=== PATIENT | female | born 1960 | race Caucasian/White ===

== ENCOUNTER 2018-07-24 13:14 | Emergency (ER) | payer BC ==
[2018-07-24 13:22] VITALS: TEMP 98.1
[2018-07-24] MEDS ORDERED: SODIUM CHLORIDE 0.9% 500 ML 500 ML IV STA (13:38)
--- NOTE | 2018-07-24 13:41 | ED ---
General Adult HPI - General Chief complaint: Syncope Stated complaint: SYNCOPE Time Seen by Provider: 07/24/18 13:19 Source: patient, EMS, RN notes reviewed, old records reviewed Mode of arrival: EMS Limitations: no limitations - History of Present Illness Initial comments: 58-year-old female presents status post syncopal episode. Patient states that f or the past 5 days she's been more constipated than usual. She was going to the bathroom today she was straining to have a bowel movement. She began feeling lightheaded and dizzy. Her came to assist, stated the patient up. She then had 4 syncopal episode with loss of consciousness. Only injury was to the left foot. Denied any preceding chest pain or palpitations. She does have previous history of coronary artery disease status post stenting. Denies current chest pain. Denies any pain other than the left ankle. She feels otherwise fine at the time my evaluation. - Related Data Home Medications Medication Instructions Recorded Confirmed Aspirin EC [Ecotrin Low Dose] 81 mg PO DAILY 07/24/18 07/24/18 Atorvastatin [Lipitor] 40 mg PO DAILY 07/24/18 07/24/18 DULoxetine HCL [Cymbalta] 30 mg PO DAILY 07/24/18 07/24/18 Diltiazem HCl [Cartia Xt] 120 mg PO DAILY 07/24/18 07/24/18 Gabapentin [Neurontin] 100 mg PO BID@0700,1300 07/24/18 07/24/18 Gabapentin [Neurontin] 300 mg PO HS 07/24/18 07/24/18 Isosorbide Mononitrate ER [Imdur] 30 mg PO TID 07/24/18 07/24/18 Metoprolol Tartrate [Lopressor] 12.5 mg PO BID 07/24/18 07/24/18 Allergies Allergy/AdvReac Type Severity Reaction Status Date / Time clindamycin Allergy Anaphylaxis Verified 07/24/18 13:34 Sulfa (Sulfonamide Allergy Rash/Hives Verified 07/24/18 13:34 Antibiotics) Review of Systems ROS Statement: Those systems with pertinent positive or pertinent negative responses have been documented in the HPI. ROS Other: All systems not noted in ROS Statement are negative. Past Medical History Past Medical History: Cancer, Deep Vein Thrombosis (DVT), Hyperlipidemia, Hypertension, Myocardial Infarction (PR), Pulmonary Embolus (PE), Rheumatoid Arthritis (RA) Additional Past Medical History / Comment(s): bladder cancer, PR 2013, neuropathy History of Any Multi-Drug Resistant Organisms: None Reported Past Surgical History: Section, Hysterectomy Additional Past Surgical History / Comment(s): urostomy Past Psychological History: No Psychological Hx Reported Smoking Status: Never smoker Past Alcohol Use History: None Reported Past Drug Use History: None Reported General Exam Limitations: no limitations General appearance: alert, in no apparent distress Head exam: Present: atraumatic, normocephalic Eye exam: Present: normal appearance, PERRL ENT exam: Present: normal exam Neck exam: Present: normal inspection. Absent: tenderness, meningismus Respiratory exam: Present: normal lung sounds bilaterally. Absent: respiratory distress, wheezes Cardiovascular Exam: Present: regular rate, normal rhythm GI/Abdominal exam: Present: soft. Absent: distended, tenderness, guarding Extremities exam: Present: full ROM, joint swelling (Left ankle soft tissue swelling anterior to the lateral malleolus. No bony deformity. Distal pulses intact.). Absent: pedal edema Neurological exam: Present: alert, oriented X3, CN II-XII intact. Absent: motor sensory deficit Psychiatric exam: Present: normal affect, normal mood Skin exam: Present: warm, dry, intact. Absent: cyanosis, diaphoretic Course Vital Signs 07/24/18 07/24/18 07/24/18 13:16 13:30 14:00 Temperature 98.1 F Pulse Rate 77 73 74 Respiratory 18 14 12 Rate Blood Pressure 150/72 150/72 141/68 O2 Sat by Pulse 98 95 97 Oximetry EKG Findings - EKG Comments: EKG Findings:: EKG: Normal sinus rhythm rate of 68, NH interval 168, QRS duration 84, QTC [address] segment elevation Medical Decision Making - Medical Decision Making 58-year-old female presenting with syncopal episode. History is consistent with vasovagal syncope. Patient is well-appearing with stable vitals in the emergency department. She has a normal sinus EKG. She does report complaints of constipation, last bowel movement was 5 days ago. X-ray of the abdomen is obtained which is consistent with moderate stool burning. Chest x-ray negative for any acute cardiac (. Left ankle was also x-rayed which show soft tissue swelling, no fracture or dislocation. Patient is eager for discharge, will be given a prescription for magnesium citrate. Will return with any worsening or changing symptoms. - Lab Data Result diagrams: 07/24/18 13:59 07/24/18 13:59 Lab Results 07/24/18 07/24/18 07/24/18 Range/Units 13:59 13:59 13:59 WBC 7.1 (3.8-10.6) k/uL RBC 4.02 (3.80-5.40) m/uL Hgb 12.6 (11.4-16.0) gm/dL Hct 36.5 (34.0-46.0) % MCV 90.9 (80.0-100.0) fL MCH 31.3 (25.0-35.0) pg MCHC 34.4 (31.0-37.0) g/dL RDW 15.4 (11.5-15.5) % Plt Count 225 (150-450) k/uL Neutrophils % 78 % Lymphocytes % 8 % Monocytes % 7 % Eosinophils % 2 % Basophils % 0 % Neutrophils # 5.5 (1.3-7.7) k/uL Lymphocytes # 0.6 L (1.0-4.8) k/uL Monocytes # 0.5 (0-1.0) k/uL Eosinophils # 0.2 (0-0.7) k/uL Basophils # 0.0 (0-0.2) k/uL Poikilocytosis Slight PT 10.5 (9.0-12.0) sec INR 1.0 (<1.2) APTT 21.9 L (22.0-30.0) sec Sodium 136 L (137-145) mmol/L Potassium 4.6 (3.5-5.1) mmol/L Chloride 104 (98-107) mmol/L Carbon Dioxide 25 (22-30) mmol/L Anion Gap 7 mmol/L BUN 18 H (7-17) mg/dL Creatinine 0.92 (0.52-1.04) mg/dL Est GFR (CKD-EPI)AfAm 80 (>60 ml/min/1.73 sqM) Est GFR (CKD-EPI)NonAf 69 (>60 ml/min/1.73 sqM) Glucose 98 (74-99) mg/dL Calcium 9.4 (8.4-10.2) mg/dL Magnesium 2.1 (1.6-2.3) mg/dL Total Bilirubin 0.8 (0.2-1.3) mg/dL AST 27 (14-36) U/L ALT 45 (9-52) U/L Alkaline Phosphatase 90 (38-126) U/L Troponin I (0.000-0.034) ng/mL Total Protein 6.1 L (6.3-8.2) g/dL Albumin 4.0 (3.5-5.0) g/dL 07/24/18 Range/Units 13:59 WBC (3.8-10.6) k/uL RBC (3.80-5.40) m/uL Hgb (11.4-16.0) gm/dL Hct (34.0-46.0) % MCV (80.0-100.0) fL MCH (25.0-35.0) pg MCHC (31.0-37.0) g/dL RDW (11.5-15.5) % Plt Count (150-450) k/uL Neutrophils % % Lymphocytes % % Monocytes % % Eosinophils % % Basophils % % Neutrophils # (1.3-7.7) k/uL Lymphocytes # (1.0-4.8) k/uL Monocytes # (0-1.0) k/uL Eosinophils # (0-0.7) k/uL Basophils # (0-0.2) k/uL Poikilocytosis PT (9.0-12.0) sec INR (<1.2) APTT (22.0-30.0) sec Sodium (137-145) mmol/L Potassium (3.5-5.1) mmol/L Chloride (98-107) mmol/L Carbon Dioxide (22-30) mmol/L Anion Gap mmol/L BUN (7-17) mg/dL Creatinine (0.52-1.04) mg/dL Est GFR (CKD-EPI)AfAm (>60 ml/min/1.73 sqM) Est GFR (CKD-EPI)NonAf (>60 ml/min/1.73 sqM) Glucose (74-99) mg/dL Calcium (8.4-10.2) mg/dL Magnesium (1.6-2.3) mg/dL Total Bilirubin (0.2-1.3) mg/dL AST (14-36) U/L ALT (9-52) U/L Alkaline Phosphatase (38-126) U/L Troponin I <0.012 (0.000-0.034) ng/mL Total Protein (6.3-8.2) g/dL Albumin (3.5-5.0) g/dL Disposition Clinical Impression: Vasovagal syncope, Constipation Disposition: HOME SELF-CARE Condition: Good Instructions (If sedation given, give patient instructions): Syncope (ED), Constipation (ED) Is patient prescribed a controlled substance at d/c from ED?: No Referrals: Olivier Alvarez MD [Primary Care Provider] - 1-2 days Time of Disposition: 15:13
[2018-07-24 14:22] LABS: Basophils % (A) 0 %; Eosinophils # (A) 0.2 k/uL (0-0.7); Eosinophils % (A) 2 %; HCT 36.5 % (34.0-46.0); HGB 12.6 gm/dL (11.4-16.0); Lymphocytes # (A) 0.6 k/uL (1.0-4.8); Lymphocytes % (A) 8 %; MCH 31.3 pg (25.0-35.0); MCHC 34.4 g/dL (31.0-37.0); MCV 90.9 fL (80.0-100.0); Mean Platelet Volume 7.4; Monocytes # (A) 0.5 k/uL (0-1.0); Monocytes % (A) 7 %; Neutrophils # (A) 5.5 k/uL (1.3-7.7); Neutrophils % (A) 78 %; Platelet Count 225 k/uL (150-450); Poikilocytosis Slight; RBC 4.02 m/uL (3.80-5.40); RDW 15.4 % (11.5-15.5); WBC 7.1 k/uL (3.8-10.6)
[2018-07-24 14:30] LABS: Calcium 9.4 mg/dL (8.4-10.2); Magnesium 2.1 mg/dL (1.6-2.3); Potassium 4.6 mmol/L (3.5-5.1); Total Bilirubin 0.8 mg/dL (0.2-1.3); Total Protein 6.1 g/dL (6.3-8.2)
[2018-07-24 14:41] LABS: Partial Thromboplastin Time 21.9 sec (22.0-30.0); Prothrombin Time 10.5 sec (9.0-12.0)
--- NOTE | 2018-07-24 14:45 | XR ---
EXAMINATION TYPE: XR chest 2V, XR KUB, XR ankle complete 3 views LT DATE OF EXAM: 07/24/2018 COMPARISON: None HISTORY: 58-year-old female with syncope when trying to have a bowel movement, twisted left ankle, fa ll and pain. FINDINGS: Chest: Heart upper limits of normal in size. Aorta and pulmonary vasculature within normal limits. Mild inte rstitial prominence is a chronic appearance. Mild hyperinflation. No consolidation or pleural effusio n. ABDOMEN: Multiple surgical clips within the pelvis and staple line within the right perimedian lower abdomen. Paucity of bowel gas limits evaluation. Some scattered colonic air is present on the right and within the rectum with moderate stool in the pelvis. No suspicious calcifications seen. Supine imaging lares ited for assessment of free air. Left ankle: Mild anterior soft tissue swelling. Ankle mortise is congruent with preservation of the distal tibiof ibular overlap. Talar dome is intact. Achilles tendon smoothly delineated. Subtalar joint align. No a cute fracture, subluxation, or dislocation seen. IMPRESSION: 1. Chest: Chronic changes, possible underlying COPD. No acute cardiopulmonary process. 2. Abdomen: Nonspecific bowel gas pattern. Extensive surgical clips in the pelvis. Moderate stool in the pelvis. 3. Left ankle: Anterior soft tissue swelling. No acute osseous abnormality seen.
[2018-07-24] MEDS ORDERED: MAGNESIUM CITRATE 296 ML BOTTLE PO ONE (15:11)
[2018-07-24 15:22] VITALS: BP 116/67; PULSE 88; RESP 28
== END 2018-07-24 15:45 | disposition home or self-care (01) ==
LOC: EC 13:14
DX: K59.00 Constipation, unspecified (principal); R55 Syncope and collapse; E78.5 Hyperlipidemia, unspecified; I10 Essential (primary) hypertension; I25.2 Old myocardial infarction; G62.9 Polyneuropathy, unspecified; I25.10 Atherosclerotic heart disease of native coronary artery without angina pectoris; Z79.82 Long term (current) use of aspirin; Z79.899 Other long term (current) drug therapy; Z88.1 Allergy status to other antibiotic agents; Z88.2 Allergy status to sulfonamides; Z86.711 Personal history of pulmonary embolism; Z86.718 Personal history of other venous thrombosis and embolism; Z85.51 Personal history of malignant neoplasm of bladder; Z95.5 Presence of coronary angioplasty implant and graft
CPT/HCPCS: 36415; 71046; 74018; 80053; 83735; 84484; 85025; 85610; 85730; 93005; 96360; 96361; 99285